=== PATIENT | male | born 1995 | race Caucasian/White ===

== ENCOUNTER 2022-02-14 12:03 | Outpatient (REF) | payer BC, SELFPAY ==
[2022-02-14 14:43] LABS: Appearance Urine CLEAR; Color Urine STRAW; Glucose Urine UA NEG (NEG); Leukocyte Esterase Urine NEG (NEG); Nitrite Urine NEG (NEG); PH 6.5 (5.0-8.0); Specific Gravity - Urine <= 1.005 (1.005-1.025); Urine Blood NEG (NEG); Urine Ketones NEG (NEG); Urine Protein NEG (NEG-TRACE)
== END 2022-02-14 12:04 | disposition home or self-care (01) ==
LOC: HO.LAB 12:03
PROVIDERS: Visit Provider Hospitalist
DX: R39.9 Unspecified symptoms and signs involving the genitourinary system (principal); Z71.1 Person with feared health complaint in whom no diagnosis is made
CPT/HCPCS: 81003; 87086

== ENCOUNTER 2024-08-24 10:07 | Outpatient (AMB) | payer OTHER, SELFPAY ==
--- NOTE | 2024-08-24 11:37 | MHC.OFFWIV ---
Intake Vital Signs 08/24/24 11:38 Weight 165 lb BP 116/80 Blood Pressure Location Lt brachial Position Sitting Pulse 78 Pulse Source Pulse Oximeter Pulse Oximetry (%) 98 Oxygen Delivery Method Room Air Intake Visit Reasons: EP-sinus infection Intake Note: Patient here for sinus staph infection again? bloody nose and painful, pt states his last one was in december. Patient Tobacco Use Status: Never used Tobacco Allergies No Known Allergies Allergy (Verified 08/24/24 11:39) Do you need a note to return to daycare/school/sports/work: No HPI HPI Comments History of Present Illness Details History of Present Illness The patient is a 28-year-old male presenting with concern for a possible recurrence of a nasal staphylococcal infection. The patient reports experiencing similar symptoms previously in December of this year, which were diagnosed and confirmed via culture at [facility]. At that time, the patient was treated with doxycycline with apparent resolution of symptoms. Currently, the patient describes a sensation of rawness, bleeding, and occasional pain in the nasal area, persisting over the past two to three weeks. There are no associated fevers or coughs reported. The patient indicates that the symptoms are similar to those experienced during the initial episode. Physical Exam General: Cooperative, healthy appearing, comfortable and no acute distress Orientation/consciousness: Patient oriented x3 Limitations: No limitations Head: Normal to inspection Ears: Hearing grossly normal bilaterally, external ears normal and TM's normal bilaterally Nose: Normal external nose present, Normal nares present and Raw, bleeding, and red nasal mucosa Face and sinus: Normal facial exam and Yes sinuses nontender Mouth: Normal oral and palatal mucosa present and moist mucous membranes Throat: Yes tonsils normal, Yes uvula midline. Posterior oropharynx erythema Eyes: Appearance normal, both eyes and all related structures Neck: Normal visual inspection Respirtory: Clear to auscultation bilaterally. Normal respiratory effort, able to speak in complete sentences, Actively coughing, no respiratory distress, not tachypneic, no tripod positioning and no use of accessory muscles Cardiovascular: Regular rate and rhythm. Normal S1 and S2 Skin: No rashes or lesions noted Neuro: Patient oriented x3 Extremities: Normal to inspection and Yes no clubbing, cyanosis or edema PFSH Social History Housing: House Patient Tobacco Use Status: Never used Tobacco e-Cigarette/Vaping Use: Currently Using Current occupational status: employed Review of Systems Const All systems reviewed & are unremarkable except as noted in HPI and below Physical Exam Vital Signs: Last Vital Signs Pulse 78 08/24/24 11:38 BP 116/80 08/24/24 11:38 Pulse Ox 98 08/24/24 11:38 Oxygen Delivery Method Room Air 08/24/24 11:38 Assessment & Plan Assessment & Plan (1) Staphylococcus infection of nose: Code(s): J34.89 - Other specified disorders of nose and nasal sinuses; B95.8 - Unspecified staphylococcus as the cause of diseases classified elsewhere Plan: For the suspected recurrence of nasal staphylococcal infection, I will prescribe doxycycline for a five-day course, given the previous response to this treatment. The patient is advised to take the medication with food unless it causes gastrointestinal discomfort. If symptoms do not improve, the patient may require a culture and further evaluation by their primary care physician. There was no indication for additional diagnostic testing or consultation at this time based on the presentation and prior similar diagnosis. Medications: New doxycycline hyclate 100 mg PO BID 10 tabs 0RF Coding Level of Care Code Est Pt Level 3 (85311) Diagnoses Staphylococcus infection of nose J34.89; B95.8
[2024-08-24 11:38] VITALS: BP 116/80; PULSE 78; O2SAT 98
== END 2024-08-24 12:06 | disposition home or self-care (01) ==
PROVIDERS: PCP Nurse Practitioner Family; Visit Provider Physician Assistant
DX: J34.89 Other specified disorders of nose and nasal sinuses (principal); B95.8 Unspecified staphylococcus as the cause of diseases classified elsewhere

== ENCOUNTER → 2024-08-24 10:07 | Outpatient (BNVA) | payer OTHER, SELFPAY | PROVIDERS: PCP Nurse Practitioner Family; Visit Provider Physician Assistant ==

== ENCOUNTER 2024-11-17 14:10 | Outpatient (AMB) | payer OTHER, SELFPAY ==
[2024-11-17 14:27] VITALS: BP 120/78; PULSE 76; TEMP 36.7; O2SAT 99; BMI 23.2
--- NOTE | 2024-11-17 14:27 | A.OFFPC_ITS ---
Vital Signs 11/17/24 14:27 Height 5 ft 10 in Weight 162 lb BMI 23.2 BP 120/78 Blood Pressure Location Lt brachial Position Sitting Pulse 76 Pulse Source Pulse Oximeter Temp 98.0 F Temp Source Oral Pulse Oximetry (%) 99 Intake Visit Reasons: PE Allergies No Known Allergies Allergy (Verified 08/24/24 11:39) Medication List - Last Reconciled 11/17/24 by DES Martinez No Known Home Meds Tobacco use date assessed: 11/17/24 Dental Screening Dental Screen Date: 11/17/24 Did you have a dental visit in the last 12 months?: Yes Did you have a dental problem in the last 6 months where you did not have access to dental care?: No Was dental information given to patient?: Patient has dentist HPI PE HPI Details History of Present Illness PE Health Maintenance Social History Review of Systems denies any cp, sob, n/v, blood in stool, constipation, diarrhea, anxiety, depression, denies any si or hi Physical Exam General: Cooperative, healthy appearing, comfortable, no acute distress and well developed Orientation: Patient oriented x3 Limitations: No limitations Head: Normal to inspection Ears: Hearing grossly normal bilaterally Nose: Normal external nose present Face and sinus: Normal facial exam Eyes: Appearance normal, both eyes and all related structures Neck: Normal visual inspection and Yes full ROM Respiratory: Normal respiratory effort and able to speak in complete sentences. Clear to auscultation bilaterally Cardiovascular: Regular rate and rhythm. Normal S1 and S2 GI: Normal to inspection. Soft to palpation and nontender Skin: No rashes or lesions noted Neuro: Patient oriented x3 Extremities: Normal to inspection Results Plan labs ordered pt encouraged to fast x 12 hrs with water overnight. [facility] Surgical History No pertinent past surgical history Social History Housing: House Patient Tobacco Use Status: Never used Tobacco e-Cigarette/Vaping Use: Currently Using Current occupational status: employed Cognitive needs: No Hearing needs: No Vision needs: No Questionnaire PHQ-9 Over the last 2 weeks, how often have you been bothered by any of the following problems? 1. Little interest or pleasure in doing things: not at all 2. Feeling down, depressed, or hopeless: not at all 3. Trouble falling or staying asleep, or sleeping too much: several days 4. Feeling tired or having little energy: not at all 5. Poor appetite or overeating: not at all 6. Feeling bad about yourself - or that you are a failure or have let yourself or your family down: not at all 7. Trouble concentrating on things, such as reading the newspaper or watching television: not at all 8. Moving or speaking so slowly that other people could have noticed. Or the opposite - being so fidgety or restless that you have been moving around a lot more than usual: not at all 9. Thoughts that you would be better off or of hurting yourself in some way: not at all Total score: 1 Depression Screening Interpretation: Negative Depression Screening Done: Yes 86887 - PHQ-9 Billing: Yes Source: Developed by Drs. Eyad Mcfadden, Kimberly Wong, Orville Venegas and colleagues, with an educational kapil from [employer]. Thrive Questionnaire Date Thrive assessed: 11/17/24 I am a: Patient What is your living situation today?: I have a steady place to live Within the past 12 months, did the food you bought not last and you didn't have the money to get more?: Never true Within the past 12 months, did you worry whether your food would run out before you got money to buy more?: Never true Do you have trouble paying for medicines?: No Do you have trouble getting transportation to medical appointments?: No Do you have trouble paying your heating and electricity bill?: No Do you have trouble taking care of your child, family member or friend?: No Do you have trouble with day-to-day activities such as bathing, preparing meals, shopping, managing finances, etc.?: No Are you currently unemployed and looking for a job?: No Are you interested in more education?: No Please select the resources that you would like help with: None Currently or been in a relationship where the following occur: No concerns reported THRIVE Score: 0 AUDIT C Alcohol Use Questionnaire (AUDIT-C) 1. How often do you have a drink containing alcohol?: Monthly or less 2. How many drinks containing alcohol do you have on a typical day when you are drinking?: 1 or 2 3. How often do you have six or more drinks on one occasion?: Never Total Score: 1 Score Reviewed/Action Taken: Yes SLIM-7 AMB Questionnaire SLIM-7 Date SLIM - 7 assessed: 11/17/24 Feeling nervous, anxious, or on edge: 0 = Not at all Not being able to stop or control worryin = Not at all Worrying too much about different things: 0 = Not at all Trouble relaxin = Not at all Being so restless that it is hard to sit still: 0 = Not at all Becoming easily annoyed or irritable: 0 = Not at all Feeling afraid as if something awful might happen: 0 = Not at all Total SLIM-7 score (0-4 normal; 5-9 mild; 10-14 moderate; 15-21 severe): 0 Source: Developed by Drs. Eyad Mcfadden, Kimberly Wong, Orville Venegas and colleagues, with an educational kapil from [employer]. SLIM-7 Assessment Billing SLIM-7 Assessment Tool: SLIM-7 Assessment 66293 Physical exam (Primary Care) Vital Signs: Last Vital Signs Temp 98.0 F 11/17/24 14:27 Pulse 76 11/17/24 14:27 BP 120/78 11/17/24 14:27 Pulse Ox 99 11/17/24 14:27 BMI result Body Mass Index 23.2 Tobacco/Smoking Status: Tobacco use Status Tobacco use date assessed 11/17/24 11/17/24 14:30 Patient Tobacco Use Status Never used Tobacco 11/17/24 14:30 e-Cigarette/Vaping Use Currently Using 11/17/24 14:30 PHQ-9: PHQ-9 Score PHQ-9: Total score 1 11/17/24 14:30 Depression Screening Interpretation: Negative Thrive Assessment: Date of Thrive Assessment Date Thrive assessed 11/17/24 11/17/24 14:30 Currently or been in a relationship where the following occur: No concerns reported Coding Level of Care Code Est Pt Prev Care 18-39y(39314) Diagnoses Physical exam Z00.00 Additional Codes SLIM-7 Assessment Billing - SLIM-7 Assessment Tool: SLIM-7 Assessment 78608 ([id number]) PHQ-9 - 00095 - PHQ-9 Billing: Yes ([id number]) Assessment & Plan Assessment & Plan (1) Physical exam: Code(s): Z00.00 - Encounter for general adult medical examination without abnormal findings Category: Medical Plan . Orders: Orders Complete Blood Count Auto Diff Today Z00.00 - Encounter for general adult medical examination without abnormal findings TSH reflex Free T4 Today Z00.00 - Encounter for general adult medical examination without abnormal findings UA CC w/rflx Micro + Cult Today Z00.00 - Encounter for general adult medical examination without abnormal findings Comprehensive [place]. Panel Fast Today Z00.00 - Encounter for general adult medical examination without abnormal findings Lipid Panel Today Z00.00 - Encounter for general adult medical examination without abnormal findings
--- OUTSIDE RECORDS SUMMARY | 2024-11-17 17:43 | XMS_ITS | Patient Health Record ---
Author Organization 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 Role Phone MARY ANN VANEGAS Primary Care Provider LevineSilviaie Unavailable [phone] MONSE MENENDEZ Unavailable [phone] ALLERGIES Allergen (clinical drug ingredient) Drug/Non Drug Allergy documented on EMR Reaction Allergy Type Onset Date Status seasonal (uncoded) Stuffy nose, watery eyes Allergy Active REASON FOR REFERRAL No Information MEDICATIONS Medication SIG (Take, Route, Frequency, Duration) Notes Start Date End Date Status Ciclopirox Treatment 8 % 1 application at bedtime Externally Once a day for 90 days 11/21/2023 Active Varenicline Tartrate(Continue) 1 MG 1 tablet Orally daily for 30 days 08/09/2023 Not-Taking Wellbutrin SR 150 MG 1 tablet Orally twice daily for 90 days Please stop chantix- this medication has been discontinued 09/27/2023 Not-Taking Nystatin 417378 UNIT/GM 1 application Externally Twice a day for 30 days 11/21/2023 Active ZyrTEC Allergy 10 MG 1 tablet Orally Once a day Active SOCIAL HISTORY Tobacco Use: Social History Observation Description Date Details (start date - stop date) Never Smoker NA - NA Sex Assigned At : Social History Observation Description Sex Assigned At Unknown Tobacco Use/Smoking Question Answer Notes Tobacco use: nonsmoker Sexual History Question Answer Notes Had sex in the past 12 months (vaginal, oral, or anal)? 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) Active confirmed [id number] VITAL SIGNS Heart Rate 79 /min 12/19/2023 Temperature 98.2 degrees Fahrenheit 12/19/2023 Height-cm 177.8 cm 12/19/2023 Oximetry 96 % 12/19/2023 Blood pressure diastolic 70 mm Hg 12/19/2023 Weight-kg 63.96 kg 12/19/2023 Height 70 in 12/19/2023 Blood pressure systolic 120 mm Hg 12/19/2023 Weight 141.0 lbs 12/19/2023 BMI 20.23 kg/m2 12/19/2023 Encounters Encounter Location Date Provider Diagnosis [address] [id number] 01/23/2024 Skye Levine [address] [id number] 04/16/2024 Skye Levine [address] [id number] 11/21/2023 MONSE MENENDEZ Tinea pedis of both feet B35.3 and Onychomycosis B35.[address] [id number] 12/19/2023 Skye Levine Nasal ulcer J34.[address] [id number] 11/21/2023 MARY ANN VANEGAS [address] [id number] 11/28/2023 Skye Levine ASSESSMENTS Encounter Date Diagnosis Assessment Notes Treatment Notes Treatment Clinical Notes Section Notes 11/21/2023 Onychomycosis (ICD-10 - B35.1) Apply to affected nails as directed Do not chew/bite nails 11/21/2023 Tinea pedis of both feet (ICD-10 - B35.3) Discussed need to change socks during work day, wear white cotton Keep open to air as much as possible May consider nystatin powder once healed Call if any worsening s/s 12/19/2023 Nasal ulcer (ICD-10 - J34.0) [employer] swab obtained to r/o staph ulcers 11/21/2023 Other Discussed applying medihoney to small crack in nose Pt has allergies at this time with multiple nose blowing Total time spent with patient 20 minutes which includes face to face visit, education and coordination of care. 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
--- OUTSIDE RECORDS SUMMARY | 2024-11-17 17:43 | XMS_ITS ---
Author Organization [facility] Address [address], [place] [id number] Care Team Providers [employer] Name Role Phone MARY ANN VANEGAS Primary Care Provider Skye Levine [phone] REASON FOR VISIT CPE Encounters Encounter Location Date Provider Diagnosis [facility], [address] [id number] 04/16/2024 Skye Levine PLAN OF TREATMENT No Information Progress Notes * DEYA WESTONRDOB:1995 ( 29 yo M)Acc No.[id number]:04/16/2024 Progress Note Patient:??MILLIE WESTON Provider:??Skye Levine DNP :1995?Age:28 Y?Sex:Ma le Date:04/16/2024 Phone: Address:[address] [place] [address], [address], [id number] Pcp:MARY ANN VANEGAS Subjective: * Chief Complaints: * ?1. CPE. * Medical History:?? Objective: Assessment: Plan: * Treatment: Care Plan: * Problems:?? * Billing Information: * Visit Code:?? * Procedure Codes:?? * Sign off status: Pending * Provider:??Skye Levine DNP Date:??
--- OUTSIDE RECORDS SUMMARY | 2024-11-17 17:43 | XMS_ITS | Clinical Summary ---
Author Organization [facility] Address [address] [place] [phone] Phone Care Team Providers Care Vp Global Name Role Phone Unavailable Primary Care Provider Unavailabl e Allergies Active Allergy Reactions Criticality Noted Date Comments Environmental 05/17/2018 Cats Dogs Seasonal Medications fexofenadine (GARETH ALLERGY) 180 MG tablet Gareth; 0; 08/26/2012; Active 08/26/2012 Active beclomethasone (QNASL) 80 MCG/ACT aerosol solution Qnasl; 0; 05/04/2015; Active 05/04/2015 Active Active Problems Problem Noted Date Diagnosed Date Weight loss 01/22/2018 Overview (04/30/2018): Loss of weight (783.21) Onset: 01/22/2018 Added by: Chapin Charlton 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 (04/30/2018): Asthma, 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) Onset: 10/10/2011 Added by: Maday Dougherty Variants of migraine 10/10/2011 Overview (04/30/2018): Ocular migraine (346.20) Onset: 10/10/2011 Added by: Maday Dougherty Immunizations Immunization Administration Dates Next Due DTaP 5 09/05/2001, 9,02/11/1998,12/31,1997 H1N1 08/10/2009 HPV Vaccine 9 Valent 05/04/2015 HPV, Quadrivalent 12/31/2014,10/20/2014 Hep A, ped/adol 10/25/2015,10/20/2014 Hep B, ped/adol 02/11/1998,1997,1997 Hib (PRP-T) 08/29/1998, 8,1997,10/19 IPV 09/05/2001, 8,1997,10/19 Influenza, injectable, quadrivalent 06/12/2017 Influenza, injectable, quadr ivalent, preservative free 10/25/2015 Influenza, injectable, trivalent 07/27/2014,07/25 Influenza, injectable, triva lent, preservative free 08/19/2012,08/08/2010,09/29/2009,07/26,07/31/2007,08/07/2006,07/22/2003 MMR 09/05/2001,08/29/1998 Meningococcal Conj (Menactra) MCV4P 10/25/2015,1 11/18/2007 Td (adult) (Tenivac), 5 Lf t etanus toxoid, PF, adsorbed 05/17/2018 Tdap 09/17/2008 Varicella 09/26/2007,05/11/2000 Social History Tobacco Use Types Packs/Day Years Used Date Smoking Tobacco: Never Comments:Never Smoker Alcohol Use Standard Drinks/Week Comments No 0 (1 standard drink = 0.6 oz pur e alcohol) Sex and Gender Information Value Date Recorded Sex Assigned at Not on file Legal Sex Male 6:20 PM EDT Gender Identity Not on file Sexual Orientation Not on file Last Filed Vital Signs Vital Sign Reading Time Taken Comments Blood Pressure 104/64 05/17/2018 11:28 AM EDT Pulse 88 05/17/2018 11:28 AM EDT Temperature 37 ??C (98.6 ??F) 04/23/2017 2:10 PM EDT Respiratory Rate - - Oxygen Saturation 99% 05/17/2018 11: 28 AM EDT Inhaled Oxygen Concentration - - Weight 64.8 kg (142 lb 12.8 oz) 018 11:28 AM EDT Height 177.8 cm (5' 10 ) 05/17/2018 11: 28 AM EDT Body Mass Index 20.49 05/17/2018 11:28 AM EDT Plan of Treatment Health Maintenance Due Date Last Done Comments Consider Men B Vaccine (1 of 2 - Bexsero 2-dose series) 2013 Influenza Vaccines (#1) 2024 06/12/20 17, 10/25/2015, 07/27/2014, Additional history exists COVID-19 Vaccine ( season) 2024 DTaP,Tdap,and Td Vaccines (8 - Td or Tdap) 05/17/2028 05/17/2018, 09/17/2008, 09/05/2001, Additional history exists Hepatitis B Vaccines Completed 02/11/1998, 1997, 1997 HIB Vaccines Completed 08/29/1998, 01/22, 1997, Additional history exists IPV Vaccines Completed 09/05/2001, 01/22, 1997, Additional history exists MMR Vaccines Completed 09/05/2001, 08/29/1998 Varicella Vaccines Completed 09/26/2007, 05/11/2000 HPV Vaccines Completed 05/04/2015, 12/22, 10/20/2014 Hepatitis A Vaccines Completed 10/25/2015, 10/20/19 15 Meningococcal Vaccine Completed 10/25/2015, 008 Men B Vaccine Aged Out No longer elig ible based on patient's age to complete this topic Pneumococcal Vaccine Aged Out No long er eligible based on patient's age to complete this topic Insurance BS [employer]AL
--- OUTSIDE RECORDS SUMMARY | 2024-11-17 17:43 | XMS_ITS ---
Author Organization [facility] - [facility] Address [address] [place] [phone] Care Team Providers Care Banking Specialist Name Role Phone MARY ANN VANEGAS Primary Care Provider [phone] Skye Levine Unavailable [phone] ALLERGIES Allergen (clinical drug ingredient) Drug/Non Drug Allergy documented on EMR Reaction Allergy Type Onset Date Status seasonal (uncoded) Stuffy nose, watery eyes Allergy Active REASON FOR VISIT Nasal infection MEDICATIONS Medication SIG (Take, Route, Frequency, Duration) Notes Start Date End Date Status Ciclopirox Treatment 8 % 1 application at bedtime Externally Once a day for 90 days 11/21/2023 Active Wellbutrin SR 150 MG 1 tablet Orally twice daily for 90 days Please stop chantix- this medication has been discontinued 09/27/2023 Not-Taking Nystatin 053584 UNIT/GM 1 application Externally Twice a day for 30 days 11/21/2023 Active Doxycycline Monohydrate 100 MG 1 capsule Orally every 12 hrs for 10 days 12/19/2023 01/02/2024 Active ZyrTEC Allergy 10 MG 1 tablet Orally Once a day Active Varenicline Tartrate(Continue) 1 MG 1 tablet Orally daily for 30 days 08/09/2023 Not-Taking Mupirocin 2 % 1 application Externally Twice a day for 5 days 12/19/2023 12/24/2023 Active SOCIAL HISTORY Tobacco Use: Social History [...] with Women only Section Notes: Lives in [place], [place] wi th girlfriend; does Vape VITAL SIGNS Temperature 98.2 degrees Fahrenheit 12/19/19 24 Blood pressure systolic 120 mm Hg 12/19/19 24 Blood pressure diastolic 70 mm Hg 024 Heart Rate 79 /min 12/19/2023 Height 70 in 12/19/2023 Weight 141.0 lbs 12/19/2023 BMI 20.23 kg/m2 12/19/2023 Oximetry 96 % 12/19/2023 Height-cm 177.8 cm 12/19/2023 Weight-kg 63.96 kg 12/19/2023 Encounters Encounter Location Date Provider Diagnosis [address] [place] [id number] 12/19/2023 Skye Levine Nasal ulcer J34.0 ASSESSMENTS Encounter Date Diagnosis Assessment Notes Treatment Notes Treatment Clinical Notes Section Notes 12/19/2023 Nasal ulcer (ICD-10 - J34.0) [facility] swab obtained to r/o staph ulcers PLAN OF TREATMENT Medication Medication Name Sig Start Date Stop Date Notes Doxycycline Monohydrate 100 MG 1 capsule Orally every 12 hrs for 10 days 12/19/2023 01/02/2024 Mupirocin 2 % 1 application Measurement Department Chief Clerk ally Twice a day for 5 days 12/19/2023 12/24/2023 Treatment Notes Assessment Notes Nasal ulcer [facility] swab obta ined to r/o staph ulcers Next Appt Details Follow Up: next availableKar: CPE Progress Notes * DEYA WESTONRDOB:1995 ( 28 yo M)Acc No.[id number]:12/19/2023 Progress Notes Patient:??MASTER WESTON Provider:??Skye Levine DNP :1995?Age:28 Y?Sex:Sarah lainez Date:12/19/2023 Phone: Address:[address] [facility] [id number] Pcp:MARY ANN VANEGAS Subjective: * Chief Complaints: * ?Nasal infection * HPI: ?Patient Care Team:? Providers/Specialists: None. ?Visit info:? Master presents in the office today for an infection in his nose. Patient has had staph infections in the past. Started in the right nostril and spread to the left. Very painful. Looks like a raw open cut, then scabs over. Wont go away. He denies any illness or sick contact. He denies fever or any cold symptoms. ?Denies nose feeling dry. * ROS:?all systems reviewed and are non-contributory unless specified in the HPI. * Medical History:?? * Surgical History:?? * Hospitalization/Major Diagno stic Procedure:??[place] & C-Diff @ [facility] x 2013 * Family History:??Father: ali ve, Hyperlipidemia.??Mother: alive, No known health history.??Paternal Grandfather: , No known health history.??Paternal Grandmother: alive, No known health history.??Maternal Grandfather: , Unknown health history.??Maternal Grandmother: alive, No known health concerns.??Brother: alive, Celiac Disease.??Sister: alive, No known health concerns.?? * Social History:?Tobacco Use:??Tobacco Use/Smoking??Tobacco use:??nonsmoker.?Sexual History:??Sexual History??Had sex in the past 12 months (vaginal, oral, or anal)???Yes,??with??Women only.?Drugs/Alcohol:??Caffeine??Intake:??1-2 cups per day.??Do you smoke marijuana?: Admits - Smokes daily, 3 x's per day. Do you drink alcohol?: No. ?Miscellaneous:??Exercise: three times a week, for 30-60 minutes a day. 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 ?Lives in [place], [place] with girlfriend; does Vape. * Medications:??TakingZyrTEC A llergy 10 MG Tablet 1 tablet Orally Once a day Nystatin 264126 UNIT/GM Cream 1 application Externally Twice a day apply to clean, dry skin to affected areaCiclopirox Treatment 8 % Kit 1 application at bedtime Externally Once a day Taking ZyrTEC Allergy 10 MG Tablet 1 tablet Orally Once a day Taking Nystatin 104909 UNIT/GM Cream 1 application Externally Twice a day apply to clean, dry skin to affected areaTaking Ciclopirox Treatment 8 % Kit 1 application at bedtime Externally Once a day Not-TakingWellbutrin SR 150 MG Tablet Extended Release 12 Hour 1 tablet Orally twice daily , Notes to Pharmacist: Please stop chantix- this medication has been discontinuedVarenicline Tartrate(Continue) 1 MG Tablet 1 tablet Orally daily Medication List reviewed and reconciled with the patientNot-Taking Wellbutrin SR 150 MG Tablet Extended Release 12 Hour 1 tablet Orally twice daily , Notes to Pharmacist: Please stop chantix- this medication has been discontinuedNot-Taking Varenicline Tartrate(Continue) 1 MG Tablet 1 tablet Orally daily Medication List reviewed and reconciled with the patient * Allergies:??seasonal: Stuffy nose, watery eyes - Allergy Objective: * Vitals:??BP:120/70mm Hg, HR: 79/min, Temp:98.2F, Oxygen sat %:96%, Wt:141.0lbs, Wt-k.96 kg, Ht: 70 in, Ht-cm: 177.8 cm, BMI:20.23Index, Body Surface Area: 1.78. * Examination: ?General Examination: ?General appearance:??alert, pleasant, well-nourished and in no acute distress.?Head:??normocephalic, atraumatic.?Eyes:??pupils equal, round, reactive to light and accommodation.?Nose:??ulceration noted in right upper nose.?Oral cavity:??normal, with good dentition, gums are normal, mucosa moist, no lesions.?Throat:??clear.?Neck / thyroid:??carotid pulses are normal and without bruits, neck is supple, with full range of motion and no cervical lymphadenopathy, no jugular venous distention, no masses and/or tenderness, normal thyroid size and shape without nodules, or tenderness, trachea midline.?Lymph nodes:??no axillary, supraclavicular or inguinal lymphadenopathy.?Neurologic:??gait normal, normal upper and lower extremity motor strength and function, normal exam with no motor or sensory deficits.?Psych:??alert and oriented x 3, cognitive function intact, cooperative with exam, maintains good eye contact, with good judgement and insight, normal affect / mood, thought process is logical and goal directed without suidical ideation or delusions.? Assessment: * Assessment: 1.??Nasal ulcer - J34.0 (Deborah colon)?? Plan: * Treatment: * Procedure Codes:?? * Preventive Medicine:?Last CPE: 10/2022 Colonoscopy: No Endoscopy: No COVID Vac: No Flu Vac: Yes. * Follow Up:??next available ( Reason: CPE) * Billing Information: * Visit Code:?? 01525 Office Visit, Est Pt., Level 2. * Procedure Codes:?? * Sign off status: Completed Addendum: * ?? true * Provider:??Skye Levine DNP Date:?? History and Physical Notes * HPI (History of Present Illness) Category Sub-Category Detail Notes Category Not es Patient Care Team Providers/ Specialists: None Visit karin Thao presents in the office today for an infection in his nose. Patient has had staph infections in the past. Started in the right nostril and spread to the left. Very painful. Looks like a raw open cut, then scabs over. Wont go away. He denies any illness or sick contact. He denies fever or any cold symptoms. Denies nose feeling dry. Examination Category Sub-Category Detail Notes Category Not es General Examination General appearance: alert, p leasant, well-nourished and in no acute distress Head: normocephalic, atrau matic Eyes: pupils equal, round, reactive to light and accommodation Nose: ulceration noted in right upper nose Throat: clear Neck / thyroid: carotid pulses are n ormal and without bruits, neck is supple, with full range of motion and no cervical lymphadenopathy, no jugular venous distention, no masses and/or tenderness, normal thyroid size and shape without nodules, or tenderness, trachea midline Neurologic: gait normal, normal upper and lower extremity motor strength and function, normal exam with no motor or sensory deficits Lymph nodes: no axillary, supracl avicular or inguinal lymphadenopathy Psych: alert and oriented x 3, cognitive function intact, cooperative with exam, maintains good eye contact, with good judgement and insight, normal affect / mood, thought process is logical and goal directed without suidical ideation or delusions Oral cavity: normal, with good de ntition, gums are normal, mucosa moist, no lesions
--- OUTSIDE RECORDS SUMMARY | 2024-11-17 17:43 | XMS_ITS | Encounter Summary ---
Author Organization [facility] Address [address] [place] [address] Phone Care Team Providers Care Mapping Analyst Name Role Phone Maday Dougherty MD Primary Care Provider [phone] Encounter Details Date Type Department Care Team (Late st Contact Info) Description 05/16/2011 Conversion Encounter [facility] - [address] [address] Social History Tobacco Use Types Packs/Day Years Used Date Smoking Tobacco: Never Assessed Sex and Gender Information Value Date Recorded Sex Assigned at Not on file Legal Sex Male 6:20 PM EDT Gender Identity Not on file Sexual Orientation Not on file documented as of this encounter Plan of Treatment Not on file documented as of this encounter Visit Diagnoses Not on filedocumented in this encounter Care Teams Mapping Analyst Relationship Specialty Start Date End Date Maday Dougherty MD [address] [place] [address] PCP - General 01/29/18 09/24/19 documented as of this encounter
--- OUTSIDE RECORDS SUMMARY | 2024-11-17 17:43 | XMS_ITS ---
Author Organization [facility], [facility] Address [address] [place], [place] [phone] Care Team Providers Care Expansion Joint Builder Name Role Phone MARY ANN VANEGAS Primary Care Provider Skye Levine [phone] REASON FOR VISIT annual Encounters Encounter Location Date Provider Diagnosis [facility], [address] [id number] 01/23/2024 Skye Levine PLAN OF TREATMENT No Information Progress Notes * DEYA WESTONRDOB:1995 ( 29 yo M)Acc No.[id number]:01/23/2024 Progress Note Patient:??MILLIE WESTON Provider:??Skye Levine DNP :1995?Age:28 Y?Sex:Ma le Date:01/23/2024 Phone: Address:[address] [place] [address], [address] [id number] Pcp:MARY ANN VANEGAS Subjective: * Chief Complaints: * ?1. Annual. * Medical History:?? Objective: Assessment: Plan: * Treatment: Care Plan: * Problems:?? * Billing Information: * Visit Code:?? * Procedure Codes:?? * Sign off status: Pending * Provider:??Skye Levine DNP Date:??10/2023
== END 2024-11-17 14:58 | disposition home or self-care (01) ==
PROVIDERS: PCP Nurse Practitioner Family; Visit Provider Nurse Practitioner Family
DX: Z00.00 Encounter for general adult medical examination without abnormal findings (principal)

== ENCOUNTER 2024-11-17 14:10 | Outpatient (REF) | payer OTHER, SELFPAY ==
--- OUTSIDE RECORDS SUMMARY | 2024-11-19 08:55 | XMS_ITS ---
Author Organization [facility] Address [address] [place] [phone] Care Team Providers Care Screen Cutter And Trimmer Name Role Phone MARY ANN VANEGAS Primary Care Provider Skye Levine Unavailable [phone] ALLERGIES Allergen (clinical drug ingredient) Drug/Non Drug [...] medication has been discontinued 09/27/2023 Not-Taking Nystatin 348427 UNIT/GM 1 application Externally Twice a day [...] with Women only Section Notes: Lives in [place], [place] wi th girlfriend; does Vape VITAL [...] 12/19/2023 Encounters Encounter Location Date Provider Diagnosis [address] [place] [id number] 12/19/2023 Skye Levine Nasal ulcer J34.0 ASSESSMENTS [...] 12/19/2023 01/02/2024 Mupirocin 2 % 1 application Automotive Parts Manager ally Twice a day for 5 days 12/19/2023 12/24/2023 Treatment Notes Assessment Notes Nasal ulcer [facility] swab obta ined to r/o staph ulcers Next Appt Details Follow Up: next availableKar: CPE Progress Notes * DEYA WESTONRDOB:1995 ( 28 yo M)Acc No.[id number]:12/19/2023 Progress Notes Patient:??MASTER WESTON Provider:??Skye Levine DNP :1995?Age:28 Y?Sex:Sarah lainez Date:12/19/2023 Phone: Address:[address] [facility] [id number] Pcp:MARY ANN VANEGAS Subjective: * Chief Complaints: [...] * Surgical History:?? * Hospitalization/Major Diagno stic Procedure:??[place] & C-Diff @ [facility] x 2013 * Family History:??Father: ali ve, [...] week, for 30-60 minutes a day. 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 ?Lives in [place], [place] with girlfriend; does Vape. * Medications:??TakingZyrTEC A llergy 10 MG Tablet 1 tablet Orally Once a day Nystatin 218965 UNIT/GM Cream 1 application Externally Twice a day apply to clean, dry skin to affected areaCiclopirox Treatment 8 % Kit 1 application at bedtime Externally Once a day Taking ZyrTEC Allergy 10 MG Tablet 1 tablet Orally Once a day Taking Nystatin 977466 UNIT/GM Cream 1 application Externally Twice a [...] CPE) * Billing Information: * Visit Code:?? 39336 Office Visit, Est Pt., Level 2. * [...]
--- OUTSIDE RECORDS SUMMARY | 2024-11-19 08:55 | XMS_ITS | Encounter Summary ---
Author Organization [facility] Address [address] [place] [address] Phone Care Team Providers Care Bottoming Machine Operator Name Role Phone Maday Dougherty MD Primary Care Provider [phone] Encounter Details Date Type Department Care Team (Late st Contact Info) Description 05/16/2011 Conversion Encounter Pediatric [facility] Adolescent Medicine - [address] [address] Social History Tobacco Use Types Packs/Day Years [...] on filedocumented in this encounter Care Teams Bottoming Machine Operator Relationship Specialty Start Date End Date Maday Dougherty MD [address] [place] [address] PCP - General 01/29/18 09/24/19 documented as of this encounter
--- OUTSIDE RECORDS SUMMARY | 2024-11-19 08:55 | XMS_ITS | Patient Health Record ---
Author Organization [email or web address] Address [address] [place] [phone] Care Team Providers Care Dry Cleaner Helper Name Role Phone MARY ANN VANEGAS Primary Care Provider LevineSilviaie Unavailable [phone] MONSE MENENDEZ Unavailable [phone] ALLERGIES Allergen (clinical drug ingredient) Drug/Non Drug [...] medication has been discontinued 09/27/2023 Not-Taking Nystatin 045749 UNIT/GM 1 application Externally Twice a day [...] with Women only Section Notes: Lives in [place], [place] wi th girlfriend; does Vape Lives in [place], [place] wi th girlfriend; does Vape Lives in [place] wi th girlfriend; does Vape Lives in [place] wi th girlfriend; does Vape Lives in [place] wi th girlfriend; does Vape Lives in [place] wi th girlfriend; does Vape Lives in [place] wi th girlfriend; does Vape Lives in [place] wi th girlfriend; does Vape PROBLEMS Problem Type ICD Code Onset Dates Problem Status W/U Status Risk SNOMED Code Notes Problem 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) Active confirmed 54792021 VITAL SIGNS Heart Rate 79 /min 12/19/2023 Temperature 98.2 degrees Fahrenheit 12/19/2023 Height-cm 177.8 cm 12/19/2023 Oximetry 96 % 12/19/2023 Blood pressure diastolic 70 mm Hg 12/19/2023 Weight-kg 63.96 kg 12/19/2023 Height 70 in 12/19/2023 Blood pressure systolic 120 mm Hg 12/19/2023 Weight 141.0 lbs 12/19/2023 BMI 20.23 kg/m2 12/19/2023 Encounters Encounter Location Date Provider Diagnosis [address] [id number] 01/23/2024 Skye Levine [address] [id number] 04/16/2024 Skye Levine [address] [id number] 11/21/2023 MONSE MENENDEZ Tinea pedis of both feet B35.3 and Onychomycosis B35.[address] [id number] 12/19/2023 Skye Levine Nasal ulcer J34.[address] [id number] 11/21/2023 MARY ANN VANEGAS [address] [id number] 11/28/2023 Skye Levine ASSESSMENTS Encounter Date Diagnosis Assessment Notes Treatment Notes Treatment Clinical Notes Section Notes 12/19/2023 Nasal ulcer (ICD-10 - J34.0) [facility] swab obtained to r/o staph ulcers 11/21/2023 Onychomycosis (ICD-10 - B35.1) Apply to affected nails as directed Do not chew/bite nails 11/21/2023 Tinea pedis of both feet (ICD-10 - B35.3) Discussed need to change socks during work day, wear white cotton Keep open to air as much as possible May consider nystatin powder once healed Call if any worsening s/s 11/21/2023 Other Discussed applying medihoney to small [...] Insured Coverage Start Date Coverage End Date [employer] [address] [place], [place] [phone] [id number] 1 MILLIE WESTON Self - patient is the insured MEDICAL (GENERAL) HISTORY Medical History History ICD Code Allergies (See's stem maker) Hospitalization History Reason Date(Month/Year) [place] & C-Diff @ [facility] x 2wks 2013
--- OUTSIDE RECORDS SUMMARY | 2024-11-19 08:55 | XMS_ITS | Clinical Summary ---
Author Organization [facility] Address [address] [place] [address] Phone Care Team Providers Care Process Design Engineer Name Role Phone Unavailable Primary Care Provider [...] Health Maintenance Due Date Last Done Comments Influenza Vaccines (#1) 2024 06/12/20 17, 10/25/2015, 07/27/2014, Additional history exists COVID-19 Vaccine ( - season) 2024 DTaP,Tdap,and Td Vaccines (8 - [...] patient's age to complete this topic Insurance [facility] FEDERAL
--- OUTSIDE RECORDS SUMMARY | 2024-11-19 08:55 | XMS_ITS ---
Author Organization [facility], [facility] Address [address] [place], [place] [id number] Care Team Providers Care Hotel Yardperson Name Role Phone MARY ANN VANEGAS Primary Care Provider [phone] Skye Levine [phone] REASON FOR VISIT CPE Encounters Encounter Location Date Provider Diagnosis [facility], [address] [phone] 04/16/2024 Skye Levine PLAN OF TREATMENT No Information Progress Notes * DEYA WESTONRDOB:1995 ( 29 yo M)Acc No.[id number]:04/16/2024 Progress Note Patient:??MILLIE WESTON Provider:??Skye Levine DNP :1995?Age:28 Y?Sex:Ma le Date:04/16/2024 Phone: Address:[address] [place] [address], [address] [id number] Pcp:MARY ANN VANEGAS Subjective: * Chief Complaints: * ?1. CPE. * Medical History:?? Objective: Assessment: Plan: * Treatment: Care Plan: * Problems:?? * Billing Information: * Visit Code:?? * Procedure Codes:?? * Sign off status: Pending * Provider:??Skye Levine DNP Date:??
--- OUTSIDE RECORDS SUMMARY | 2024-11-19 08:55 | XMS_ITS ---
Author Organization [facility], [facility] Address [address] [place], [place] [phone] Care Team Providers Care Engineering Program Manager Name Role Phone MARY ANN VANEGAS Primary Care Provider [phone] Skye Levine [phone] REASON FOR VISIT annual Encounters Encounter Location Date Provider Diagnosis [facility], [address] [id number] 01/23/2024 Skye Levine PLAN OF TREATMENT No Information Progress Notes * DEYA WESTONRDOB:1995 ( 29 yo M)Acc No.[id number]:01/23/2024 Progress Note Patient:??MILLIE WESTON Provider:??Skye Levine DNP :1995?Age:28 Y?Sex:Ma le Date:01/23/2024 Phone: Address:[address] [place] [address], [address], [id number] Pcp:MARY ANN VANEGAS Subjective: * Chief Complaints: * ?1. Annual. * Medical History:?? Objective: Assessment: Plan: * Treatment: Care Plan: * Problems:?? * Billing Information: * Visit Code:?? * Procedure Codes:?? * Sign off status: Pending * Provider:??Skye Levine DNP Date:??10/2023
== END 2024-11-17 14:11 | disposition home or self-care (01) ==
LOC: HO.HMGCLDS 14:10
PROVIDERS: PCP Nurse Practitioner Family; Visit Provider Nurse Practitioner Family
DX: Z00.00 Encounter for general adult medical examination without abnormal findings (principal)
CPT/HCPCS: 96127

== ENCOUNTER 2024-11-19 08:33 | Outpatient (REF) | payer OTHER, SELFPAY ==
[2024-11-19 10:14] LABS: MANUAL DIFF FLAG NO
[2024-11-19 10:18] LABS: Basophils Absolute Auto 0.1 X10*3/uL (0.0-0.2); Basophils Percent Auto 1.2 % (0-2); Eosinophils Absolute Auto 0.4 X10*3/uL (0.0-0.4); Eosinophils Percent Auto 7.4 % (0-4); Hemoglobin 14.9 g/dl (14.0-18.0); Imm Gran Abs Auto 0.01 X10*3/uL (0.00-0.03); Imm Gran Pct Auto 0.2 % (0.0-0.4); Lymphocytes Absolute Auto 2.7 X10*3/uL (1.2-4.9); Lymphocytes Percent Auto 54.3 % (20-40); Mean Corpuscular HGB Conc 33.9 g/dl (31.0-36.0); Mean Corpuscular Hemoglobin 28.4 pg (27.0-33.0); Mean Platelet Volume 9.5 fL (9.4-12.4); Monocytes Absolute Auto 0.4 X10*3/uL (0.1-1.2); Neutrophils Absolute Auto 1.5 x10*3/uL (2.0-8.3); Neutrophils Percent Auto 29.9 % (45-73); Platelet Count 321 X10*3/uL (160-400); Red Blood Count 5.24 X10*6/uL (4.60-5.80); Red Cell Distribution Width 11.9 % (11.0-16.0)
[2024-11-19 10:23] LABS: Appearance Urine Clear; Color Urine Yellow; Glucose Urine UA Negative (Negative); Leukocyte Esterase Urine Negative (Negative); Nitrite Urine Negative (Negative); PH 5.5 (5.0-9.0); Specific Gravity - Urine >= 1.030 (1.005-1.025); Urine Blood Negative (Negative); Urine Ketones Negative (Negative); Urine Protein Negative (Neg-Trace)
[2024-11-19 10:44] LABS: Alanine Aminotransferase 46 U/L (0-40); Albumin Level 4.6 g/dL (3.5-5.0); Alkaline Phosphatase 88 U/L (39-117); Anion Gap 11 (12-20); Aspartate Amino Transferase 32 U/L (5-37); Bilirubin Total 0.7 mg/dL (0.0-1.0); Blood Urea Nitrogen 16 mg/dL (9-16); Calcium 9.4 mg/dL (8.4-10.2); Carbon Dioxide 24 mmol/L (22-29); Chloride 109 mmol/L (96-108); Cholesterol 187 mg/dL (<200); Estimated Glomerular Filt Rate > 60; Glucose Fasting 90 mg/dL (60-99); HDL Cholesterol 48 mg/dL (>40); LDL Cholesterol Calculated 123 mg/dL (<100); Potassium 3.9 mmol/L (3.3-5.1); Sodium 140 mmol/L (135-145); Total Protein 7.3 g/dL (6.5-8.0); Triglycerides 80 mg/dL (<150)
[2024-11-19 10:51] LABS: TSH reflex Free T4 1.47 uIU/mL (0.32-4.0)
== END 2024-11-19 08:34 | disposition home or self-care (01) ==
LOC: HO.HMGCLDS 08:33
PROVIDERS: PCP Nurse Practitioner Family; Visit Provider Nurse Practitioner Family
DX: Z00.00 Encounter for general adult medical examination without abnormal findings (principal)
CPT/HCPCS: 36415; 80053; 80061; 81003; 84443; 85025

== ENCOUNTER 2024-12-10 10:22 | Outpatient (REF) | payer OTHER, SELFPAY ==
--- NOTE | ~2024-12-10 | US_ITS ---
CLINICAL HISTORY: R74.8 - Abnormal levels of other serum enzymes US abdomen limited Comparison: None Findings: The visualized pancreas is normal. The aorta and inferior vena cava are normal caliber. The appearance of the liver suggests fatty infiltration without focal lesion. There is no intrahepatic bile duct dilatation. The common duct is 1.4 mm in diameter. The gallbladder is normal. There is no sonographic Olvera sign. The main portal vein is antegrade. The right kidney is 9.5 cm in length. No ascites. IMPRESSION: Hepatic steatosis. This document has been electronically signed by: Tommy Christian MD on 12/11/2024 08:29:15
--- OUTSIDE RECORDS SUMMARY | 2024-12-10 11:47 | XMS_ITS | Encounter Summary ---
Author Organization [facility] Address [address] [place] [address] Phone Care Team Providers Care Industrial Design Intern Name Role Phone Maday Dougherty MD Primary Care Provider Encounter Details Date Type Department Care Team (Late st Contact Info) Description 05/16/2011 Conversion Encounter [facility]olescent [facility] - [address] [address] Social History Tobacco Use Types Packs/Day Years [...] on filedocumented in this encounter Care Teams Industrial Design Intern Relationship Specialty Start Date End Date Maday Dougherty MD [address] [place] [address] PCP - General 01/29/18 09/24/19 documented as of this encounter
--- OUTSIDE RECORDS SUMMARY | 2024-12-10 11:47 | XMS_ITS | Clinical Summary ---
Author Organization [facility] Address [address] [place] [address] Phone Care Team Providers Care Class 1 Owner Operator Name Role Phone Unavailable Primary Care Provider [...] patient's age to complete this topic Insurance [facility] FEDERAL
--- OUTSIDE RECORDS SUMMARY | 2024-12-10 11:48 | XMS_ITS ---
Author Organization [facility], [facility] Address [address] [place], [place] [phone] Care Team Providers Care Sat Tutor Name Role Phone MARY ANN VANEGAS Primary Care Provider Skye Levine [phone] REASON FOR VISIT annual Encounters Encounter Location Date Provider Diagnosis [facility], [address] [id number] 01/23/2024 Skye Levine PLAN OF TREATMENT No Information Progress Notes * DEYA WESTONRDOB:1995 ( 29 yo M)Acc No.[id number]:01/23/2024 Progress Note Patient:??MILLIE WESTON Provider:??Skye Levine DNP :1995?Age:28 Y?Sex:Ma le Date:01/23/2024 Phone: Address:[address] [place] [address], [address] [id number] Pcp:MARY ANN VANEGAS Subjective: * Chief Complaints: * ?1. Annual. * Medical History:?? Objective: Assessment: Plan: * Treatment: Care Plan: * Problems:?? * Billing Information: * Visit Code:?? * Procedure Codes:?? * Sign off status: Pending * Provider:??Skye Levine DNP Date:??10/2023
--- OUTSIDE RECORDS SUMMARY | 2024-12-10 11:48 | XMS_ITS | Patient Health Record ---
Author Organization [facility] [employer] [facility] Address [address] [place] [phone] Care Team Providers Care Equipment Lead Name Role Phone MARY ANN VANEGAS Primary Care Provider Skye Levine Unavailable [phone] ALLERGIES Allergen (clinical drug ingredient) Drug/Non Drug [...] medication has been discontinued 09/27/2023 Not-Taking Nystatin 891984 UNIT/GM 1 application Externally Twice a day [...] with Women only Section Notes: Lives in [place], [place] wi th girlfriend; does Vape Lives in [place], [place] wi th girlfriend; does Vape Lives in [place] wi th girlfriend; does Vape Lives in [place] wi th girlfriend; does Vape Lives in [place] wi th girlfriend; does Vape Lives in [place] wi th girlfriend; does Vape Lives in [place] wi th girlfriend; does Vape Lives in [place] wi th girlfriend; does Vape PROBLEMS Problem Type ICD Code Onset Dates Problem Status W/U Status Risk SNOMED Code Notes Problem 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) Active confirmed 39928100 VITAL SIGNS Heart Rate 79 /min 12/19/2023 Temperature 98.2 degrees Fahrenheit 12/19/2023 Height-cm 177.8 cm 12/19/2023 Oximetry 96 % 12/19/2023 Blood pressure diastolic 70 mm Hg 12/19/2023 Weight-kg 63.96 kg 12/19/2023 Height 70 in 12/19/2023 Blood pressure systolic 120 mm Hg 12/19/2023 Weight 141.0 lbs 12/19/2023 BMI 20.23 kg/m2 12/19/2023 Encounters Encounter Location Date Provider Diagnosis [address] [id number] 01/23/[address] [id number] 04/16/[address] [id number] 12/19/2023 Skye Levine Nasal ulcer J34.0 ASSESSMENTS Encounter Date Diagnosis Assessment Notes Treatment Notes Treatment Clinical Notes Section Notes 12/19/2023 Nasal ulcer (ICD-10 - J34.0) [facility] swab obtained to r/o staph ulcers PLAN OF TREATMENT No Information Insurance Providers Payer Name Payer Address Payer Phone Subscriber Number Group Number Insured Name Patient Relationship to Insured Coverage Start Date Coverage End Date [employer] [address] [place] [phone] [id number] MILLIE WESTON Self - patient is the insured MEDICAL (GENERAL) HISTORY Medical History History ICD Code Allergies (See's quality rn) Hospitalization History Reason Date(Month/Year) [place] [facility] C-Diff @ [facility] x 2w2013
--- OUTSIDE RECORDS SUMMARY | 2024-12-10 11:48 | XMS_ITS ---
Author Organization [facility] [employer] [facility] Address [address] [place] [phone] Care Team Providers Care Epic Ambulatory Analyst Name Role Phone MARY ANN VANEGAS Primary Care Provider Skye Levine Unavailable [phone] ALLERGIES Allergen (clinical drug ingredient) Drug/Non Drug [...] medication has been discontinued 09/27/2023 Not-Taking Nystatin 745452 UNIT/GM 1 application Externally Twice a day [...] with Women only Section Notes: Lives in [place], [place] wi th girlfriend; does Vape VITAL [...] 12/19/2023 Encounters Encounter Location Date Provider Diagnosis [address] [place] [id number] 12/19/2023 Skye Levine Nasal ulcer J34.0 ASSESSMENTS [...] 12/19/2023 01/02/2024 Mupirocin 2 % 1 application 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 * Hospitalization/Major Diagno stic Procedure:??[place] [facility] C-Diff @ [facility] x 2013 * Family History:??Father: ali [...] week, for 30-60 minutes a day. 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 ?Lives in [place], [place] with girlfriend; does Vape. * Medications:??TakingZyrTEC A llergy 10 MG Tablet 1 tablet Orally Once a day Nystatin 962579 UNIT/GM Cream 1 application Externally Twice a day apply to clean, dry skin to affected areaCiclopirox Treatment 8 % Kit 1 application at bedtime Externally Once a day Taking ZyrTEC Allergy 10 MG Tablet 1 tablet Orally Once a day Taking Nystatin 236355 UNIT/GM Cream 1 application Externally Twice a [...] CPE) * Billing Information: * Visit Code:?? 65561 Office Visit, Est Pt., Level 2. * [...]
[2024-12-10 13:11] LABS: MANUAL DIFF FLAG NO
[2024-12-10 13:26] LABS: Basophils Absolute Auto 0.1 X10*3/uL (0.0-0.2); Basophils Percent Auto 1.3 % (0-2); Eosinophils Absolute Auto 0.5 X10*3/uL (0.0-0.4); Eosinophils Percent Auto 11.3 % (0-4); Hematocrit 42.4 % (42.0-52.0); Hemoglobin 14.4 g/dl (14.0-18.0); Lymphocytes Absolute Auto 2.1 X10*3/uL (1.2-4.9); Lymphocytes Percent Auto 46.6 % (20-40); Mean Corpuscular Volume 85.3 fL (80.0-98.0); Mean Platelet Volume 9.4 fL (9.4-12.4); Monocytes Absolute Auto 0.3 X10*3/uL (0.1-1.2); Monocytes Percent Auto 6.6 % (2-11); Neutrophils Absolute Auto 1.6 x10*3/uL (2.0-8.3); Neutrophils Percent Auto 34.2 % (45-73); Platelet Count 253 X10*3/uL (160-400); Red Blood Count 4.97 X10*6/uL (4.60-5.80); Red Cell Distribution Width 12.4 % (11.0-16.0); White Blood Count 4.5 X10*3/uL (4.8-10.8)
[2024-12-10 14:05] LABS: HBS Num1 2.65 mIU/mL (0-7.99); HBc Num1 0.05 S/CO (0.00-0.79); HBsAGNum1 0.36 S/CO (0.00-0.99); Hepatitis A Antibody IgM 0.15 Index (0-0.79); Hepatitis B Core Antibody Nonreactive (Nonreactive); Hepatitis B Surface Antigen Negative (Negative); ~HepC Num1 0.09 S/CO (0.00-0.79); ~Hepatitis A Antibody IgM Nonreactive (Nonreactive); ~Hepatitis B Surface Antibody NONREACTIVE (Nonreactive); ~Hepatitis C Antibody Nonreactive (Nonreactive)
== END 2024-12-10 10:23 | disposition home or self-care (01) ==
LOC: HO.HMGCX 10:22
PROVIDERS: PCP Nurse Practitioner Family; Visit Provider Nurse Practitioner Family
DX: R74.8 Abnormal levels of other serum enzymes (principal); D72.820 Lymphocytosis (symptomatic)
CPT/HCPCS: 36415; 76705; 85025; 86704; 86706; 86709; 86803; 87340

== ENCOUNTER → 2024-12-10 10:28 | Outpatient (BNV) | payer OTHER, SELFPAY | PROVIDERS: PCP Nurse Practitioner Family; Visit Provider Specialist | DX: K76.0 Fatty (change of) liver, not elsewhere classified (principal) | CPT/HCPCS: 76705 ==

== ENCOUNTER 2025-02-11 06:56 | Outpatient (AMB) | payer OTHER, SELFPAY ==
--- OUTSIDE RECORDS SUMMARY | 2025-02-11 06:58 | XMS_ITS | Clinical Summary ---
Author Organization [facility] Address [address] [place] [phone] Phone Care Team Providers Care Svp Business Development Name Role Phone Unavailable Primary Care Provider [...] patient's age to complete this topic Insurance [facility]
--- OUTSIDE RECORDS SUMMARY | 2025-02-11 06:58 | XMS_ITS | Encounter Summary ---
Author Organization [facility] Address [address] [place] [address] Phone Care Team Providers Care Assembler Tubing Name Role Phone Maday Dougherty MD Primary Care Provider [phone] Encounter Details Date Type Department Care Team (Late st Contact Info) Description 05/16/2011 Conversion Encounter [facility] - [address] [phone] Social History Tobacco Use Types Packs/Day Years [...] on filedocumented in this encounter Care Teams Assembler Tubing Relationship Specialty Start Date End Date Maday Dougherty MD [address] [place] [id number] PCP - General 01/29/18 09/24/19 documented as of this encounter
--- NOTE | 2025-02-11 07:48 | A.OFFPC_ITS ---
Intake Visit Reasons: referral request Allergies No Known Allergies Allergy (Verified 02/11/25 07:49) Medication List - Last Reconciled 02/11/25 by DES Martinez meloxicam 7.5 mg PO DAILY PRN 30 days prednisone 50 mg PO DAILY 6 days Tobacco use date assessed: 11/17/24 Dental Screening Dental Screen Date: 11/17/24 HPI referral request HPI Details History of Present Illness The patient is a 29-year-old male presenting with bilateral knee pain predominantly affecting the anterior and lateral regions of both knees. The pain began after participating in two 14-mile obstacle course events, each entailing strenuous physical activities such as jumping and climbing. Initially, he struggled with walking post-event, but symptoms have since improved, although discomfort remains, especially when transitioning from prolonged sitting to standing. He denies experiencing any weakness, swelling, or redness currently and suggests possible microtrauma and inflammation. There is no reported history of previous knee issues or interventions. Review of Systems - Musculoskeletal: Reports bilateral kne e pain primarily anterior and lateral. Denies weakness, active swelling, or redness. - General: Denies other symptoms. Plan 1. 5 to 2 months to ensure full recovery . The patient will remain in communication for any further questions or issues.: Discussion Notes I discussed with the patient the likely diagnosis of patellofemoral pain syndrome secondary to recent strenuous activities involving significant physical stress on his knees. We reviewed the treatment plan involving a course of prednisone followed by meloxicam, highlighting the anti-inflammatory benefits and potential side effects of each medication. The necessity of a stretching routine in one week and the recommendation to avoid high-impact activities for 1.5 to 2 months were emphasized as crucial elements of the recovery process. I informed him of the importance of monitoring his symptoms and encouraged open communication should further issues or questions arise. Patient Instructions - Take prednisone as prescribed for six days. - After prednisone, start meloxicam as d irected. - Begin a stretching routine in one week . - Avoid intense physical activities for 1.5 to 2 months. - Contact me with any further questions or concerns. [facility] Surgical History No pertinent past surgical history Social History Housing: House Patient Tobacco Use Status: Never used Tobacco e-Cigarette/Vaping Use: Currently Using Current occupational status: employed Cognitive needs: No Hearing needs: No Vision needs: No Questionnaire Thrive Questionnaire Date Thrive assessed: 11/17/24 I am a: Patient What is your living situation today?: I have a steady place to live Within the past 12 months, did the food you bought not last and you didn't have the money to get more?: Never true Within the past 12 months, did you worry whether your food would run out before you got money to buy more?: Never true Do you have trouble paying for medicines?: No Do you have trouble getting transportation to medical appointments?: No Do you have trouble paying your heating and electricity bill?: No Do you have trouble taking care of your child, family member or friend?: No Do you have trouble with day-to-day activities such as bathing, preparing meals, shopping, managing finances, etc.?: No Are you currently unemployed and looking for a job?: No Are you interested in more education?: No Please select the resources that you would like help with: None Currently or been in a relationship where the following occur: No concerns reported THRIVE Score: 0 SLIM-7 AMB Questionnaire SLIM-7 Date SLIM - 7 assessed: 11/17/24 Source: Developed by Drs. Eyad Mcfadden, Kimberly Wong, Orville Venegas and colleagues, with an educational kapil from [employer]. Physical exam (Primary Care) Tobacco/Smoking Status: Tobacco use Status Tobacco use date assessed 11/17/24 11/17/24 14:30 Patient Tobacco Use Status Never used Tobacco 11/17/24 14:30 e-Cigarette/Vaping Use Currently Using 11/17/24 14:30 Thrive Assessment: Date of Thrive Assessment Date Thrive assessed 11/17/24 11/17/24 14:30 Currently or been in a relationship where the following occur: No concerns reported Telehealth Telehealth [facility] Location of provider rendering services: practice address Location of patient: address on file Telehealth method: video Patient verbally consented to treatment: Yes Patient verbally consented to billing insurance company: Yes Patient informed of any privacy concerns related to visit: Yes Minutes spent on Phone/Video with Pt.: 15 Coding Level of Care Code Tele Est Pt Level 3 (88845) Diagnoses Bilateral knee pain M25.561; M25.562 Assessment & Plan Assessment & Plan (1) Bilateral knee pain: Code(s): M25.561 - Pain in right knee; M25.562 - Pain in left knee Category: Medical Plan . Medications: New prednisone 50 mg PO DAILY 6 days 6 tabs 0RF meloxicam 7.5 mg PO DAILY 30 days PRN 30 tabs 0RF knee pain
== END 2025-02-11 08:11 | disposition home or self-care (01) ==
LOC: HO.HMCC 06:57
PROVIDERS: PCP Nurse Practitioner Family; Visit Provider Nurse Practitioner Family
DX: M25.561 Pain in right knee (principal); M25.562 Pain in left knee

== ENCOUNTER → 2025-02-11 06:56 | Outpatient (BNVA) | payer OTHER, SELFPAY | PROVIDERS: PCP Nurse Practitioner Family; Visit Provider Nurse Practitioner Family | DX: Z13.89 Encounter for screening for other disorder (principal) ==

== ENCOUNTER 2025-03-21 15:59 | Emergency (ER) | payer OTHER, SELFPAY ==
[2025-03-21 16:22] VITALS: BP 128/80; PULSE 103; RESP 16; TEMP 37.2; O2SAT 98; BMI 22.6
--- NOTE | 2025-03-21 16:29 | ED_ITS ---
HPI - General Adult General Chief complaint: General Medical Stated complaint: wants meds prescribed doesnt wanna say for what Time Seen by Provider: 03/21/25 16:29 Source: patient Mode of arrival: ambulatory Limitations: no limitations History of Present Illness ED Provider: Beulah Trevino PA-C HPI narrative: Patient is a 29 year old assigned male at with a history of dermatitis presenting to the emergency department today after HIV exposure. Patient states that he had anal sex with someone who did not disclose they were HIV positive until after their encounter. Patient states that he wore a condom but how secure the condom was is questionable and he is still very concerned and would like to be started on post-exposure prophylactic medication. Patient denies any dizziness, lightheadedness, abdominal pain, nausea, vomiting, fever, chills, blurry vision, double vision, loss of vision, chest pain, difficulty breathing, shortness of breath, back pain, night sweats, pain with urination, increased urinary frequency, increased urinary urgency, blood in his urine or stool, syncope or a near syncopal episode, recent trauma or falls, bowel incontinence, bladder incontinence, or any other complaints at this time. Related Data Previous Rx's ?Medication ?Instructions ?Recorded meloxicam 7.5 mg tablet 7.5 mg PO DAILY PRN knee javier n 30 02/11/25 days #30 tabs prednisone 50 mg tablet 50 mg PO DAILY 6 days #6 tab s 02/11/25 dolutegravir 50 mg tablet (Tivicay) 50 mg PO DAILY 5 d ays #5 tabs 03/21/25 doxycycline hyclate 100 mg tablet 100 mg PO BID 7 days #14 tabs 03/21/25 emtricitabine 200 mg-tenofovir 1 tab PO DAILY 5 days # 5 tabs 03/21/25 disoproxil fumarate 300 mg tablet (Truvada) Allergies Allergy/AdvReac Type Severity Reaction Status Date / Time No Known Allergies Allergy Verified 03/21/25 16:23 Review of Systems 2 Constitutional: Constitutional: Reports no additional constitutional complaints, Denies chills, Denies fever(s) and Denies night sweats Eyes: Eyes: Reports no additional eye complaints, Denies blurry vision, Denies change in vision, Denies diplopia, Denies eye discharge, Denies loss of vision and Denies eye pain ENT: Denies dizziness Cardiovascular: Cardiovascular: Reports no additional cardiovascular complaints, Denies chest pain, Denies lightheadedness, Denies Loss of Consciousness and Denies dyspnea Respiratory: Respiratory: Reports no additional respiratory complaints and Denies dyspnea Gastrointestinal: Gastrointestinal: Reports no additional gastrointestinal complaints, Denies abdominal pain, Denies melena, Denies hematochezia, Denies change in bowel habits and Denies change in stool character Genitourinary: Genitourinary: Reports no additional male genitourinary complaints, Denies hematuria, Denies oliguria, Denies difficulty urinating, Denies dysuria, Denies urinary frequency, Denies urinary hesitancy, Denies urinary incontinence and Denies urinary urgency Musculoskeletal: Musculoskeletal: Reports no additional musculoskeletal complaints, Denies numbness and Denies tingling Neurologic: Denies dizziness, Denies loss of vision, Denies numbness and Denies tingling Psychiatric: Psychiatric: Reports no additional psychiatric complaints Endocrine: Endocrine: Reports no additional endocrine complaints Hematologic/Lymphatic: Hematologic/Lymphatic: Reports no additional hematologic/lymphatic complaints Allergic/Immunologic: Allergic/Immunologic: Reports no additional allergic/immunologic complaints PMFSH Past Medical History Attestation statement: The following information was validated with the patient. Source: old records reviewed and nursing notes reviewed Surgical History No pertinent past surgical history Social History Social History Housing: House Patient Tobacco Use Status: Never used Tobacco e-Cigarette/Vaping Use: Currently Using Advance Directives: No Advance Directives Information Provided: No Do you have a plan to hurt others: No Plan Current occupational status: employed Cognitive needs: No Hearing needs: No Vision needs: No Physical Exam ED Vital Signs: Vital Signs - 24 hr 03/21/25 16:22 03/21/25 17:35 Temperature 99.0 F 99.0 F Pulse Rate 103 H 103 H Respiratory Rate 16 16 Blood Pressure 128/80 128/80 Pulse Oximetry 98 98 Oxygen Delivery Method Room Air Room Air BMI result Body Mass Index 22.6 Const General: cooperative, no acute distress, alert and awake Nutritional Appearance: well nourished Orientation/consciousness: patient oriented x3 HENMT Head: Yes normal to inspection and Yes atraumatic Ears: hearing grossly normal bilaterally and external ears normal General nose exam: Normal external nose present, no nasal discharge noted and no epistaxis Face and sinus: Yes normal facial exam, No abrasion and No laceration Mouth: Normal oral and palatal mucosa present, no drooling and no muffled voice Eyes General: appearance normal, both eyes and all related structures Periorbital: periorbital findings normal Eyelids: Yes eyelids normal Conjunctivae: conjunctivae normal Pupils: Equal, round and reactive pupils present EOM: EOMs intact bilaterally Neck Neck: Yes normal visual inspection, Yes full ROM and Yes no lymphadenopathy Resp Effort & Inspection: normal respiratory effort and able to speak in complete sentences Neuro General: patient oriented x3, moves all extremities and CN's II-XI intact bilaterally Cranial nerves: Yes Equal, round and reactive pupils present Cognition (Neuro): normal cognition Extrem General: Yes normal to inspection, Yes full ROM and Yes capillary refill normal Psych Appearance: grossly normal Mental Status: mental status grossly normal Affect: normal affect Attitude: cooperative Thought process: Normal thought process present Thought content: Normal thought content present Insight: Good insight present (Psych) Medications Administered Discontinued Medications Generic Name Dose Route Start Last Admin Trade Name [place] PRN Reason Stop Dose Admin Ceftriaxone Sodium 500 mg/ 0 mg 03/21/25 16:41 03/21/25 17:14 Lidocaine HCl 1 ml IM 03/21/25 16:42 500 kit ONCE ONE Administration Doxycycline Monohydrate 100 mg 03/21/25 16:41 03/21/25 17:14 Doxycycline Monohydrate 100 Mg Capsule PO 03/21/25 16:42 100 mg ONCE ONE Administration Medical Decision Making Medical Decision Making [facility] Narrative: Patient is a 29 year old assigned male at with a history of dermatitis presenting to the emergency department today after HIV exposure. Patient's physical exam was unremarkable. Patient's blood work was unremarkable. Patient's STI testing is pending. I explained my physical exam findings as well as all test results to the patient. I answered all questions asked by the patient. Patient prescribed post-exposure prophylaxis for 5 days and instructed to follow up with [facility] for additional testing and PEP prescribing. I stressed the importance of the patient taking his medication as directed (either prescribed or as the over the counter packaging recommends). I stressed the importance of the patient following up with his primary care provider and [facility]. I stressed the importance of the patient returning to the emergency department immediately if his symptoms were to worsen or if he were to develop any dizziness, shortness of breath, difficulty breathing, chest pain, blurry vision, loss of vision, nausea, vomiting, abdominal pain, fever, chills, back pain, or any other complaints. Patient verbalized agreement and understanding with this treatment plan and discharge. Differential Diagnosis Differential Diagnoses: The differential diagnosis associated with the presentation includes HIV exposure Admission/Observation Consideration of admission/observation: Escalation of care including admission/observation considered Patient would have been admitted to the hospital had his work up had any findings where hospital admission was appropriate and his clinical presentation warranted hospital admission. Lab Data [facility] Lab Attestation statement: I reviewed the patient's lab results. My interpretation of these results are in the [facility] Rationale portion of this note. 03/21/25 16:50 03/21/25 16:50 Labs: Lab Results 03/21/25 03/21/25 03/21/25 Range/Units 16:50 16:50 16:50 WBC 8.8 (4.8-10.8) X10*3/uL RBC 5.14 (4.60-5.80) X10*6/uL Hgb 15.2 (14.0-18.0) g/dl Hct 42.6 (42.0-52.0) % MCV 82.9 (80.0-98.0) fL MCH 29.6 (27.0-33.0) pg MCHC 35.7 (31.0-36.0) g/dl RDW 11.7 (11.0-16.0) % Plt Count 284 (160-400) X10*3/uL MPV 8.9 L (9.4-12.4) fL Immature Gran % (Auto) 0.2 (0.0-0.4) % Neut % (Auto) 70.2 (45-73) % Lymph % (Auto) 20.3 (20-40) % [place] % (Auto) 5.4 (2-11) % Eos % (Auto) 3.2 (0-4) % Baso % (Auto) 0.7 (0-2) % Lymph # (Auto) 1.8 (1.2-4.9) X10*3/uL [place] # (Auto) 0.5 (0.1-1.2) X10*3/uL Eos # (Auto) 0.3 (0.0-0.4) X10*3/uL Baso # (Auto) 0.1 (0.0-0.2) X10*3/uL Abs Immat Gran (auto) 0.02 (0.00-0.03) X10*3/uL Absolute Neuts (auto) 6.1 (2.0-8.3) x10*3/uL Absolute Nucleated RBC 0.000 (0.0-0.012) X10*3/uL Nucleated RBC % (auto) 0.0 (0.0-0.2) /100WBC Sodium 140 (135-145) mmol/L Potassium 4.1 (3.3-5.1) mmol/L Chloride 109 H (96-108) mmol/L Carbon Dioxide 22 (22-29) mmol/L Anion Gap 13 (12-20) BUN 14 (9-16) mg/dL Creatinine 1.06 1.02 (0.5-1.4) mg/dL Estim Creat Clear Calc 106.0 110.1 Estimated GFR > 60 Random Glucose (60-115) mg/dL Calcium (8.4-10.2) mg/dL Total Bilirubin (0.0-1.0) mg/dL AST (5-37) U/L ALT (0-40) U/L Alkaline Phosphatase (39-117) U/L Total Protein (6.5-8.0) g/dL Albumin (3.5-5.0) g/dL 03/21/25 03/21/25 03/21/25 Range/Units 16:50 16:50 16:50 WBC (4.8-10.8) X10*3/uL RBC (4.60-5.80) X10*6/uL Hgb (14.0-18.0) g/dl Hct (42.0-52.0) % MCV (80.0-98.0) fL MCH (27.0-33.0) pg MCHC (31.0-36.0) g/dl RDW (11.0-16.0) % Plt Count (160-400) X10*3/uL MPV (9.4-12.4) fL Immature Gran % (Auto) (0.0-0.4) % Neut % (Auto) (45-73) % Lymph % (Auto) (20-40) % [place] % (Auto) (2-11) % Eos % (Auto) (0-4) % Baso % (Auto) (0-2) % Lymph # (Auto) (1.2-4.9) X10*3/uL [place] # (Auto) (0.1-1.2) X10*3/uL Eos # (Auto) (0.0-0.4) X10*3/uL Baso # (Auto) (0.0-0.2) X10*3/uL Abs Immat Gran (auto) (0.00-0.03) X10*3/uL Absolute Neuts (auto) (2.0-8.3) x10*3/uL Absolute Nucleated RBC (0.0-0.012) X10*3/uL Nucleated RBC % (auto) (0.0-0.2) /100WBC Sodium (135-145) mmol/L Potassium (3.3-5.1) mmol/L Chloride (96-108) mmol/L Carbon Dioxide (22-29) mmol/L Anion Gap (12-20) BUN (9-16) mg/dL Creatinine (0.5-1.4) mg/dL Estim Creat Clear Calc Estimated GFR > 60 Random Glucose 135 H (60-115) mg/dL Calcium 10.0 D (8.4-10.2) mg/dL Total Bilirubin 0.6 (0.0-1.0) mg/dL AST 23 23 (5-37) U/L ALT 37 36 (0-40) U/L Alkaline Phosphatase 83 (39-117) U/L Total Protein 7.0 (6.5-8.0) g/dL Albumin 4.9 (3.5-5.0) g/dL Scores Additional Scores HIV Incidence Risk Index for MSM (HIRI-MSM): Score: 8-12 Comment: If patient's condom was secure, 8 (low risk). If patient's condom was unsecured, 12 (high risk). Discharge Plan Discharge Clinical Impression: HIV exposure Patient Disposition: Home, Self-Care Instructions: PEP (Postexposure Prophylaxis) (ED) Additional Instructions: Follow up with [facility] and your primary care provider. Take your medication as prescribed. If any of your STI results are positive - we will call you. You may also see your results on the portal. Return to the emergency department immediately if you develop any numbness, tingling, dizziness, shortness of breath, difficulty breathing, chest pain, blurry vision, loss of vision, nausea, vomiting, abdominal pain, fever, chills, back pain, or any other complaints. Please see the information below about our Patient Portal. If you are not yet enrolled in the [facility] Patient Portal, you will receive an enrollment email invitation following your visit to any [facility] setting. You may also self-enroll in the Patient Portal by visiting our website: [email or web address] The following information is required to access the Patient Portal: - Your [facility] Medical Record Number - Your personal home email address (must match what is in your electronic medical record, Registration staff can assist with this) - Name - Date of Capabilities of the Patient Portal: - Message some providers - View upcoming appointments - Access your health summary, medical history, and visit history - View current conditions and allergies - View procedure and lab results - View your medications, including guidelines, side effects, and precautions - Complete pre-appointment questionnaires requested by your provider - Ready summary reports of your office visits and procedures To access the Patient Portal Mobile [employer], follow these directions: - Search [employer] in the [employer] Store or [employer] Store - Download the [employer] - Search for [facility] - Enter your login/password Prescriptions: New emtricitabine-tenofovir (TDF) [Truvada] 200-300 mg tablet 1 tab PO DAILY 5 Days Qty: 5 0RF Tivicay 50 mg tablet 50 mg PO DAILY 5 Days Qty: 5 0RF doxycycline hyclate 100 mg tablet 100 mg PO BID 7 Days Qty: 14 0RF No Action prednisone 50 mg tablet 50 mg PO DAILY 6 Days Qty: 6 0RF meloxicam 7.5 mg tablet 7.5 mg PO DAILY PRN (Reason: knee pain) 30 Days Qty: 30 0RF Referrals: [facility] [Provider Group] Referral Note: Call to establish and follow up with [facility] about your testing and PEP. Isaias Roth, SALES DEVELOPMENT ASSOCIATE-BC [Primary Care Provider, Internal Medicine] Interventions: ED Discharge Assessment Last Done: 03/21/25 17:35 Discharge Date/Time: 03/21/25 17:37 Print Language: [place]
[2025-03-21 17:01] LABS: Basophils Absolute Auto 0.1 X10*3/uL (0.0-0.2); Basophils Percent Auto 0.7 % (0-2); Eosinophils Absolute Auto 0.3 X10*3/uL (0.0-0.4); Eosinophils Percent Auto 3.2 % (0-4); Hematocrit 42.6 % (42.0-52.0); Hemoglobin 15.2 g/dl (14.0-18.0); Imm Gran Abs Auto 0.02 X10*3/uL (0.00-0.03); Imm Gran Pct Auto 0.2 % (0.0-0.4); Lymphocytes Absolute Auto 1.8 X10*3/uL (1.2-4.9); Lymphocytes Percent Auto 20.3 % (20-40); MANUAL DIFF FLAG NO; Mean Corpuscular HGB Conc 35.7 g/dl (31.0-36.0); Mean Corpuscular Hemoglobin 29.6 pg (27.0-33.0); Mean Corpuscular Volume 82.9 fL (80.0-98.0); Mean Platelet Volume 8.9 fL (9.4-12.4); Monocytes Absolute Auto 0.5 X10*3/uL (0.1-1.2); Monocytes Percent Auto 5.4 % (2-11); Neutrophils Absolute Auto 6.1 x10*3/uL (2.0-8.3); Neutrophils Percent Auto 70.2 % (45-73); Platelet Count 284 X10*3/uL (160-400); Red Blood Count 5.14 X10*6/uL (4.60-5.80); Red Cell Distribution Width 11.7 % (11.0-16.0); White Blood Count 8.8 X10*3/uL (4.8-10.8)
[2025-03-21] MEDS: cefTRIAXone sodium 500 MG, Lidocaine HCl 1 % MPF 1 ML IM (17:14)
[2025-03-21] MEDS: Doxycycline Monohydrate 100 MG CAPSULE PO (17:14)
[2025-03-21 17:20] LABS: Alanine Aminotransferase 37 U/L (0-40); Albumin Level 4.9 g/dL (3.5-5.0); Alkaline Phosphatase 83 U/L (39-117); Anion Gap 13 (12-20); Aspartate Amino Transferase 23 U/L (5-37); Bilirubin Total 0.6 mg/dL (0.0-1.0); Blood Urea Nitrogen 14 mg/dL (9-16); Carbon Dioxide 22 mmol/L (22-29); Chloride 109 mmol/L (96-108); Estimated Glomerular Filt Rate > 60; Glucose Random 135 mg/dL (60-115); Potassium 4.1 mmol/L (3.3-5.1); Sodium 140 mmol/L (135-145)
[2025-03-21 17:21] LABS: Alanine Aminotransferase 36 U/L (0-40); Aspartate Amino Transferase 23 U/L (5-37); Creatinine Clr Calc Pharmacy 110.1; Estimated Glomerular Filt Rate > 60
[2025-03-21 17:35] VITALS: BP 128/80; PULSE 103; RESP 16; TEMP 37.2; O2SAT 98
[2025-03-22 04:03] LABS: HBS Num1 2.55 mIU/mL (0-7.99); HBsAGNum1 0.36 S/CO (0.00-0.99); HIV AB/AG Nonreactive (Nonreactive); HIV Num 1 0.07 S/CO (0.00-0.99); Hepatitis B Surface Antigen Negative (Negative); ~HepC Num1 0.09 S/CO (0.00-0.79); ~Hepatitis B Surface Antibody NONREACTIVE (Nonreactive); ~Hepatitis C Antibody Nonreactive (Nonreactive)
[2025-03-22 04:05] LABS: Syphilis Screen Nonreactive (Nonreactive)
[2025-03-22 05:17] LABS: CT PCR Urine NOT DETECTED (Not Detect.); NG PCR Urine NOT DETECTED (Not Detect.)
== END 2025-03-21 17:37 | disposition home or self-care (01) ==
PROVIDERS: Physician Assistant Medical; Emergency Provider Emergency Medicine; PCP Nurse Practitioner Family
DX: Z20.6 Contact with and (suspected) exposure to human immunodeficiency virus [HIV] (principal); Z20.2 Contact with and (suspected) exposure to infections with a predominantly sexual mode of transmission; Z79.899 Other long term (current) drug therapy
CPT/HCPCS: 36415; 80053; 82565; 84450; 84460; 85025; 86706; 86780; 86803; 87340; 87389; 87491; 87591; 96372; 99282; 99284; J0696; J2003

== ENCOUNTER 2025-04-01 07:04 | Outpatient (REF) | payer OTHER, SELFPAY ==
[2025-04-01 11:19] LABS: HBS Num1 2.87 mIU/mL (0-7.99); HBc Num1 0.09 S/CO (0.00-0.79); HBsAGNum1 0.38 S/CO (0.00-0.99); HIV Num 1 0.05 S/CO (0.00-0.99); Hepatitis A Antibody IgM 0.15 Index (0-0.79); Hepatitis B Surface Antigen Negative (Negative); ~HepC Num1 0.10 S/CO (0.00-0.79); ~Hepatitis A Antibody IgM Nonreactive (Nonreactive); ~Hepatitis B Surface Antibody NONREACTIVE (Nonreactive); ~Hepatitis C Antibody Nonreactive (Nonreactive)
== END 2025-04-01 07:05 | disposition home or self-care (01) ==
LOC: HO.HMGCLDS 07:04
PROVIDERS: PCP Nurse Practitioner Family; Visit Provider Nurse Practitioner Family
DX: Z20.6 Contact with and (suspected) exposure to human immunodeficiency virus [HIV] (principal)
CPT/HCPCS: 36415; 86704; 86706; 86709; 86803; 87340; 87389